=== PATIENT | male | born 1965 | race Caucasian/White ===

== ENCOUNTER 2019-10-04 00:22 | Emergency (ER) | payer BC ==
[~2019-10-04] VITALS: Ht 177.8 cm; Wt 79.4 kg
[2019-10-04] MEDS ORDERED: FORTAMET500 MG PO (00:30)
[2019-10-04] MEDS ORDERED: NORCO 5-325 TA1 EACH PO (01:39)
== END 2019-10-04 01:51 | disposition home or self-care (01) ==
LOC: ED 00:22
DX: N13.2 Hydronephrosis with renal and ureteral calculous obstruction (principal); E78.00 Pure hypercholesterolemia, unspecified; E11.9 Type 2 diabetes mellitus without complications; Z79.84 Long term (current) use of oral hypoglycemic drugs
CPT/HCPCS: 74176; 80053; 81001; 85025; 96374; 96375; 99284-25; J1170; J1885; J2405; J7030